=== PATIENT | male | born 1965 | race Caucasian/White ===

== ENCOUNTER 2021-03-23 14:50 | Observation (INO) | payer OTHER ==
[~2021-03-23] VITALS: Ht 182.9 cm; Wt 115.3 kg
[2021-03-23 15:21] LABS: RED BLOOD COUNT 4.39 M/UL (4.20-5.50); WHITE BLOOD COUNT 5.6 K/UL (4.5-11.0)
[2021-03-23 15:37] LABS: BUN/CREATININE RATIO 19 (0-10)
[2021-03-24 05:16] LABS: RED BLOOD COUNT 4.41 M/UL (4.20-5.50); WHITE BLOOD COUNT 7.3 K/UL (4.5-11.0)
[2021-03-24 05:38] LABS: BUN/CREATININE RATIO 17 (0-10)
[2021-03-24] MEDS ORDERED: FLOMAX 0.4 MG0.4 MG PO (09:28)
[2021-03-24] MEDS ORDERED: WELLBUTRIN XL300 M1 PO (09:29)
[2021-03-24] MEDS ORDERED: BUPRENORPHIN-N1 EACH SL (09:30)
[2021-03-24] MEDS ORDERED: ATORVASTATIN CA40 MG PO (09:31)
[2021-03-24] MEDS ORDERED: CITALOPRAM HBR40 MG PO (09:32)
[2021-03-24] MEDS ORDERED: LEVOFLOXACIN500 MG PO (09:34)
[2021-03-24] MEDS ORDERED: GABAPENTIN800 MG PO (09:34)
[2021-03-24] MEDS ORDERED: LANTUS SOL100 UNIT/1 SQ (09:41)
== END 2021-03-24 13:55 ==
LOC: ER1 14:50 → CDU 16:21 → M/S 22:15
PROVIDERS: Emergency Medicine; Physician Assistant Medical; ADMIT Internal Medicine Infectious Disease
DX: T42.4X1A Poisoning by benzodiazepines, accidental (unintentional), initial encounter (principal); G92 Toxic encephalopathy; E11.65 Type 2 diabetes mellitus with hyperglycemia; I10 Essential (primary) hypertension; Z89.429 Acquired absence of other toe(s), unspecified side; F17.210 Nicotine dependence, cigarettes, uncomplicated; F11.11 Opioid abuse, in remission; Z20.822 Contact with and (suspected) exposure to COVID-19
CPT/HCPCS: 36415; 70450; 71045; 80053; 82550; 82553; 82962; 83605; 83735; 83874; 84484; 85025; 85027; 87040; 93005; 96372; 96374; 99285; G0378; J1650; U0002

== ENCOUNTER → 2021-10-14 | Outpatient (CLI) | payer OTHER ==
[~2021-10-14] MED LIST: ATORVASTATIN CA40 MG PO; BUPRENORPHIN-N1 EACH SL; CITALOPRAM HBR40 MG PO; FLOMAX 0.4 MG0.4 MG PO; GABAPENTIN800 MG PO; LANTUS SOL100 UNIT/1 SQ; LEVOFLOXACIN500 MG PO; WELLBUTRIN XL300 M1 PO
== END ==
LOC: LBRF 16:35
DX: J32.9 Chronic sinusitis, unspecified (principal); D38.5 Neoplasm of uncertain behavior of other respiratory organs
CPT/HCPCS: 87070; 87077; 87186; 87205

== ENCOUNTER 2021-10-23 16:26 | Inpatient (IN) | payer OTHER ==
[~2021-10-23] VITALS: Ht 182.9 cm; Wt 122.5 kg
[~2021-10-23 16:26] MED LIST changes: -ATORVASTATIN CA40 MG PO; -BUPRENORPHIN-N1 EACH SL; -LANTUS SOL100 UNIT/1 SQ
[2021-10-23 18:35] LABS: HEMOGLOBIN 13.5 gm/dl (14.0-17.5); RED BLOOD COUNT 4.52 M/UL (4.20-5.50); WHITE BLOOD COUNT 9.9 K/UL (4.5-11.0)
[2021-10-23 19:04] LABS: BUN/CREATININE RATIO 11 (0-10)
[2021-10-24 02:57] LABS: HEMOGLOBIN 12.6 gm/dl (14.0-17.5); RED BLOOD COUNT 4.23 M/UL (4.20-5.50); WHITE BLOOD COUNT 9.5 K/UL (4.5-11.0)
[2021-10-24 03:20] LABS: BUN/CREATININE RATIO 10 (0-10)
[2021-10-24] MEDS ORDERED: SILVADENE CREAM20 GM TOP (07:54)
[2021-10-24] MEDS ORDERED: VITAMIN D3125 MCG PO (07:56)
[2021-10-24] MEDS ORDERED: JARDIANCE10 MG PO (07:57)
[2021-10-24] MEDS ORDERED: GABAPENTIN400 MG PO (07:58)
[2021-10-24] MEDS ORDERED: IBUPROFEN800 MG PO (07:59)
[2021-10-24] MEDS ORDERED: GLUCOPHAGE 500500 MG PO (08:00)
[2021-10-24] MEDS ORDERED: OMEPRAZOLE40 MG PO (08:01)
[2021-10-24] MEDS ORDERED: INSULIN LI100 UNIT/2 SQ (08:03)
[2021-10-24] MEDS ORDERED: PROAIR HFA8.5 GM INH (08:04)
[2021-10-24] MEDS ORDERED: ATORVASTATIN CA40 MG PO (08:07)
[2021-10-24] MEDS ORDERED: BUPRENORPHIN-N1 EACH SL (09:30)
[2021-10-24] MEDS ORDERED: LANTUS SOL100 UNIT/1 SQ (09:41)
--- NOTE | 2021-10-24 18:06 | NUR ---
UPON ENTERING PATIENT SROOM TO GIVE MEDICATION PATIENT HAS CHAGNED HIS CLOTHES INTO WHAT HE HAD ON PRIOR TO SURGERY AND HAS TORN HIS SURGICAL DRESSING IN THE FLOOR. PATIENT ALSO HAD TAKEN THE VITALS MONITOR OFF AND WAS NOT WANTING TO WEAR IT. PROVIDER MADE AWARE. PATIENTS WOUND REDRESSED PER PROVIDER ORDER. NO BLEEDING NOTED. PATIENT ALLOWED ME TO PUT VITALS MACHINE BACK ON HIM AFTER I DISCUSSED THE IMPORTANCE OF KEEPING TRACK OF TRENDING VITALS POST OP.
[2021-10-25 05:36] LABS: HEMOGLOBIN 11.8 gm/dl (14.0-17.5); RED BLOOD COUNT 3.95 M/UL (4.20-5.50)
[2021-10-25 05:37] LABS: WHITE BLOOD COUNT 6.2 K/UL (4.5-11.0)
[2021-10-25 05:53] LABS: BUN/CREATININE RATIO 12 (0-10)
[2021-10-26 07:46] LABS: HEMOGLOBIN 12.4 gm/dl (14.0-17.5); RED BLOOD COUNT 4.22 M/UL (4.20-5.50); WHITE BLOOD COUNT 6.2 K/UL (4.5-11.0)
[2021-10-26 08:01] LABS: BUN/CREATININE RATIO 15 (0-10)
[2021-10-27 03:23] LABS: HEMOGLOBIN 12.2 gm/dl (14.0-17.5); RED BLOOD COUNT 4.12 M/UL (4.20-5.50); WHITE BLOOD COUNT 7.1 K/UL (4.5-11.0)
[2021-10-27 03:40] LABS: BUN/CREATININE RATIO 13 (0-10)
[2021-10-28 06:31] LABS: HEMOGLOBIN 12.4 gm/dl (14.0-17.5); RED BLOOD COUNT 4.24 M/UL (4.20-5.50); WHITE BLOOD COUNT 7.6 K/UL (4.5-11.0)
[2021-10-28 07:01] LABS: BUN/CREATININE RATIO 18 (0-10)
[2021-10-29 06:27] LABS: HEMOGLOBIN 12.1 gm/dl (14.0-17.5); RED BLOOD COUNT 4.1 M/UL (4.20-5.50); WHITE BLOOD COUNT 8.9 K/UL (4.5-11.0)
[2021-10-29 06:43] LABS: BUN/CREATININE RATIO 19 (0-10)
[2021-10-29] MEDS ORDERED: DOXYCYCLINE (09:58)
[2021-10-29] MEDS ORDERED: LEVOFLOXACIN (09:58)
== END 2021-10-29 16:10 | disposition home or self-care (01) | DRG 854 ==
LOC: ER1 16:26 → M/S 21:10 → CDU 21:10 → M/S 10-24 08:36
PROVIDERS: Internal Medicine; Physician Assistant; Surgery; ADMIT Internal Medicine
PROC: 3E03329 Introduction of Other Anti-infective into Peripheral Vein, Percutaneous Approach (ICD-10-PCS; 2021-10-23)
PROC: 0Y9M0ZZ Drainage of Right Foot, Open Approach (ICD-10-PCS; 2021-10-24)
PROC: 0QBN0ZZ Excision of Right Metatarsal, Open Approach (ICD-10-PCS; principal; 2021-10-24 16:41)
DX: A41.89 Other specified sepsis (principal); L03.115 Cellulitis of right lower limb; E11.621 Type 2 diabetes mellitus with foot ulcer; G89.29 Other chronic pain; I10 Essential (primary) hypertension; Z20.822 Contact with and (suspected) exposure to COVID-19; E11.65 Type 2 diabetes mellitus with hyperglycemia; L97.519 Non-pressure chronic ulcer of other part of right foot with unspecified severity; F32.A Depression, unspecified; E11.40 Type 2 diabetes mellitus with diabetic neuropathy, unspecified; E66.9 Obesity, unspecified; E87.6 Hypokalemia; K59.03 Drug induced constipation; T40.2X5A Adverse effect of other opioids, initial encounter; F17.210 Nicotine dependence, cigarettes, uncomplicated; F41.9 Anxiety disorder, unspecified; E11.628 Type 2 diabetes mellitus with other skin complications; Z59.00 Homelessness unspecified; Z79.891 Long term (current) use of opiate analgesic; Z90.49 Acquired absence of other specified parts of digestive tract; Z98.890 Other specified postprocedural states; Z83.3 Family history of diabetes mellitus; Z82.49 Family history of ischemic heart disease and other diseases of the circulatory system; Z68.36 Body mass index [BMI] 36.0-36.9, adult; Z91.14 Patient's other noncompliance with medication regimen
CPT/HCPCS: 36415; 73630; 80048; 80053; 80061; 80202; 80307; 82550; 82553; 82607; 82728; 82746; 82962; 83036; 83605; 83735; 84100; 84132; 84439; 84443; 84484; 84550; 85025; 85610; 85652; 86140; 87040; 87070; 87205; 94760; 96365; 96366; 96375; 99284; G0378; J1100; J1335; J1650; J1885; J2001; J2250; J2405; J2543; J2704; J3010; J3370; J7030; J7070; J7120; U0002

== ENCOUNTER 2022-01-21 17:29 | Emergency (ER) | payer OTHER ==
[~2022-01-21] VITALS: Ht 182.9 cm; Wt 122.5 kg
[~2022-01-21 17:29] MED LIST changes: +ATORVASTATIN CA40 MG PO; +BUPRENORPHIN-N1 EACH SL; +DOXYCYCLINE; +GABAPENTIN400 MG PO; +IBUPROFEN800 MG PO; +INSULIN LI100 UNIT/2 SQ; +JARDIANCE25 MG PO; +LANTUS SOL100 UNIT/1 SQ; +LEVOFLOXACIN; +METFORMIN HCL500 M2 PO; +OMEPRAZOLE40 MG PO; +PROAIR HFA8.5 GM INH; +SILVADENE CREAM20 GM TOP; +VITAMIN D3125 MCG PO
[2022-01-21 23:18] LABS: HEMOGLOBIN 12.8 gm/dl (14.0-17.5); RED BLOOD COUNT 4.21 M/UL (4.20-5.50); WHITE BLOOD COUNT 8.8 K/UL (4.5-11.0)
[2022-01-21 23:42] LABS: BUN/CREATININE RATIO 23 (0-10)
[2022-01-22] MEDS ORDERED: IBU800 MG PO (11:33)
[2022-01-22] MEDS ORDERED: WELLBUTRIN XL150 MG PO (11:34)
[2022-01-22] MEDS ORDERED: CORTAID28 GM TOP (11:34)
[2022-01-22] MEDS ORDERED: CYMBALTA30 MG PO (11:35)
[2022-01-22] MEDS ORDERED: DOXYCYCLINE HY100 M2 PO (11:35)
[2022-01-22] MEDS ORDERED: FINASTERIDE5 MG PO (11:35)
[2022-01-22] MEDS ORDERED: MAG-G27 MG PO (11:36)
[2022-01-22] MEDS ORDERED: FUROSEMIDE40 MG PO (11:36)
[2022-01-22] MEDS ORDERED: LANTUS SOL100 UNIT/1 SQ (11:36)
[2022-01-22] MEDS ORDERED: NICODERM CQ1 EAC1 TD (11:38)
== END 2022-01-23 00:41 | disposition short-term general hospital (02) ==
LOC: ER1 17:29
PROVIDERS: Student in an Organized Health Care Education/Training Program
DX: E11.69 Type 2 diabetes mellitus with other specified complication (principal); M86.9 Osteomyelitis, unspecified; I10 Essential (primary) hypertension; G89.29 Other chronic pain; F32.A Depression, unspecified; F17.210 Nicotine dependence, cigarettes, uncomplicated; J44.9 Chronic obstructive pulmonary disease, unspecified; E78.5 Hyperlipidemia, unspecified; Z89.431 Acquired absence of right foot; Z87.898 Personal history of other specified conditions; Z90.49 Acquired absence of other specified parts of digestive tract; Z20.822 Contact with and (suspected) exposure to COVID-19
CPT/HCPCS: 73630; 73701; 80053; 82962; 83605; 85025; 85652; 86140; 87040; 96374; 96375; 96376; 99285; J0692; J1885; J2543; J3370; J7030; J7070; Q9967; U0002